=== PATIENT | female | born 1935 | race Caucasian/White ===

== ENCOUNTER 2021-05-07 12:01 | Inpatient (IN) | payer MEDICARE, SELFPAY ==
[~2021-05-07] VITALS: Ht 154.9 cm; Wt 55.3 kg
[2021-05-07 12:13] VITALS: BP_SYST 192
[2021-05-07 16:58] LABS: BASOPHILS % (AUTO) 0.1 % (0.0-2.0); HEMATOCRIT 32.4 % (36-48); HEMOGLOBIN 10.7 g/dL (12.0-16.0); LYMPHOCYTES # (AUTO) 0.6 K/uL (1.0-5.5); LYMPHOCYTES % (AUTO) 3.6 % (20.5-51.5); MEAN CORPUSCULAR HEMOGLOBIN 29 pg (27-31); MEAN CORPUSCULAR HGB CONC 33 % (32-36); MEAN CORPUSCULAR VOLUME 87 fL (79.0-98.0); MONOCYTES # (AUTO) 0.6 K/uL (0.0-1.0); MONOCYTES % (AUTO) 3.6 % (1.7-9.3); NEUTROPHILS # (AUTO) 15.5 K/uL (1.8-7.7); NEUTROPHILS % (AUTO) 92.7 % (40.0-70.0); PLATELET COUNT (AUTO) 257 K/uL (130-430); RED BLOOD CELL COUNT(AUTO) 3.75 MIL/uL (4.2-6.2); RED CELL DISTRIBUTION WIDTH 13.8 % (9.0-15.0); WHITE BLOOD COUNT (AUTO) 16.7 K/uL (4.8-10.8)
[2021-05-07 17:07] LABS: C-REACTIVE PROTEIN QUANT 4.1 mg/dL (0-0.5)
[2021-05-07 17:08] LABS: ANION GAP 13 (5-15); CALCIUM 8.9 mg/dL (8.4-11.0); CHLORIDE 105 mmol/L (98-107); CREATININE 0.91 mg/dL (0.55-1.30); GLUCOSE 135 mg/dL (70-99); POTASSIUM 3.5 mmol/L (3.5-5.1); SODIUM SERUM 142 mmol/L (136-145); UREA NITROGEN, BLOOD 22 mg/dL (8-21)
[2021-05-07 17:15] LABS: ALANINE AMINOTRANSFERASE 15 U/L (12-78); ALBUMIN 3.4 g/dL (3.4-4.8); AMYLASE 93 U/L (0-100); ASPARTATE AMINOTRANSFERASE 13 U/L (10-37); LIPASE 50 U/L (73-393); TOTAL BILIRUBIN 1.5 mg/dL (0.0-1.0)
[2021-05-07] MEDS ORDERED: metroNIDAZOLE 500 MG TABLET PO ONE (18:00)
--- NOTE | 2021-05-07 20:26 | NUR ---
Patient to ER hallway bed for evaluation. Side rails up.
--- NOTE | 2021-05-07 21:02 | NUR ---
Patient brought in via ambulance from home complaining of diffuse abdominal pain with watery diarrhea x 3 days. Family denies patient taking any antibiotics x 2 week. Patient is afebrile. Pain 8/10, sharp throbbing
--- NOTE | 2021-05-07 22:21 | NUR ---
PATIENT HAD BOWEL MOVEMENT. PATIENT GIVEN PERINEAL CARE AND CHANGED. PATIENT REPORTS FEELING BETTER. BUT STILL HAVING ABDOMINAL PAIN. NO OTHER COMPLAINTS/INJURIES PER PATIENT OR NOTED. WILL CONTINUE TO MONITOR.
[2021-05-07] MEDS ORDERED: ACETAMINOPHEN 500 MG TABLET PO PRN (22:45)
[2021-05-07] MEDS ORDERED: DOCUSATE SODIUM 100 MG/10 ML UDC PO PRN (22:45)
[2021-05-07] MEDS ORDERED: ZOLPIDEM TARTRATE 5 MG TABLET PO PRN (22:45)
[2021-05-07] MEDS ORDERED: HYDROcodone/ACETAMIN 7.5-325 MG TAB PO PRN (22:45)
[2021-05-07] MEDS ORDERED: guaiFENesin/DEXTROMETHORPHAN 10 ML UDC PO PRN (22:45)
[2021-05-07] MEDS ORDERED: hydrALAZINE HCL 20 MG/ML VIAL IVP PRN (23:00)
--- NOTE | 2021-05-07 23:03 | NUR ---
RADIOLOGY AT BEDSIDE
--- NOTE | 2021-05-07 23:30 | NUR ---
#20 gauge angiocath placed to LAC. Use of asceptic technique. Opsite placed over site. Blood return noted. Blood for lab drawn from site. Flushed with 10 cc of normal saline. No evidence of infiltration noted. Patient tolerated well.
[2021-05-07] MEDS: D5NS 1,000 ML IV SCH (23:49)
--- NOTE | 2021-05-07 23:50 | NUR ---
Medicated per MD orders. Levaquin infusing with no s/s of infiltration at this time. Will cont to monitor
[2021-05-07] MEDS: ONDANSETRON HCL 4 MG/2 ML VIAL IVP PRN (23:51)
[2021-05-07] MEDS: MORPHINE 2 MG/ML INJ. SYRINGE IVP PRN (23:51)
[2021-05-07 23:55] LABS: FREE T4 (FREE THYROXINE) 1.4 ng/dl (0.8-1.5); PHOSPHORUS 4.7 mg/dL (2.7-4.5); THYROID STIMULATING HORMONE 0.97 uIu/mL (0.36-3.74)
[2021-05-08] MEDS ORDERED: PIPERACILLIN/TAZOBACTAM 2.25 GM VIAL IV ONE (00:17)
--- NOTE | 2021-05-08 00:57 | NUR ---
[facility]. Chest rise and fall noted.
[2021-05-08] MEDS: PIPERACILLIN/TAZO 2.25G/DEX-IS 50 ML IV SCH ×3 (02:24→12:04)
--- NOTE | 2021-05-08 02:36 | NUR ---
Patient resting comfortably. No acute distress noted. chest rise and fall noted. VSS
[2021-05-08] MEDS ORDERED: TRIA15CR2 (03:06)
[2021-05-08] MEDS ORDERED: HYDR-4039 PO (03:06)
[2021-05-08] MEDS ORDERED: FENO160T37 PO (03:06)
[2021-05-08] MEDS ORDERED: PATANOL EACH EYE (03:06)
[2021-05-08] MEDS ORDERED: CLOB15CR4 (03:06)
[2021-05-08] MEDS ORDERED: LOSA50TA3 PO (03:06)
[2021-05-08] MEDS ORDERED: METO25TA6 PO (03:06)
--- NOTE | 2021-05-08 03:43 | NUR ---
REPORT GIVEN TO WILMA FOR CONTINUATION OF CARE. PATIENT RESTING COMFORTABLY. NO ACUTE DISTRESS NOTED.
--- NOTE | 2021-05-08 04:10 | NUR ---
Winston lozano in [facility] - 05/08/21 at 0414 by RHEA Asysned====
--- NOTE | 2021-05-08 04:10 | NUR ---
Assumed total care of patient. Patient appears to be sleeping comfortably in [facility], easily arousable to verbal stimuli. Patient is hypertensive, given PRN blood pressure medication of Hydralazine 10mg IVP. Patient on playground monitor. Patient receiving IV fluids of D5NS at 100ml/hr. Both IV sites flushed with 10cc normal saline, no signs of infiltration noted. Will continue to monitor patient.
--- NOTE | 2021-05-08 04:15 | NUR ---
Lab at bedside drawing morning blood labs
[2021-05-08] MEDS: D5NS 1,000 ML IV SCH ×2 (04:30→12:05)
--- NOTE | 2021-05-08 04:35 | NUR ---
IV fluids of D5NS 1L at 100ml/hr due at 0430. Patient currently has D5NS infusing at 100ml/hr with approx 700ml till liter bag complete. Last dose scanned and given at 0869 on 05/07/21.
[2021-05-08 04:40] LABS: BASOPHILS % (AUTO) 0.2 % (0.0-2.0); HEMATOCRIT 28.6 % (36-48); HEMOGLOBIN 9.5 g/dL (12.0-16.0); LYMPHOCYTES # (AUTO) 0.4 K/uL (1.0-5.5); LYMPHOCYTES % (AUTO) 3.1 % (20.5-51.5); MEAN CORPUSCULAR HEMOGLOBIN 28 pg (27-31); MEAN CORPUSCULAR HGB CONC 33 % (32-36); MEAN CORPUSCULAR VOLUME 86 fL (79.0-98.0); MONOCYTES # (AUTO) 0.7 K/uL (0.0-1.0); MONOCYTES % (AUTO) 5.8 % (1.7-9.3); NEUTROPHILS # (AUTO) 11.4 K/uL (1.8-7.7); NEUTROPHILS % (AUTO) 90.9 % (40.0-70.0); PLATELET COUNT (AUTO) 220 K/uL (130-430); RED BLOOD CELL COUNT(AUTO) 3.34 MIL/uL (4.2-6.2); RED CELL DISTRIBUTION WIDTH 13.7 % (9.0-15.0); WHITE BLOOD COUNT (AUTO) 12.6 K/uL (4.8-10.8)
[2021-05-08 04:48] LABS: ANION GAP 9 (5-15); CALCIUM 8.3 mg/dL (8.4-11.0); CHLORIDE 105 mmol/L (98-107); CREATININE 0.71 mg/dL (0.55-1.30); GLUCOSE 147 mg/dL (70-99); POTASSIUM 3.4 mmol/L (3.5-5.1); SODIUM SERUM 140 mmol/L (136-145); UREA NITROGEN, BLOOD 22 mg/dL (8-21)
[2021-05-08 04:59] LABS: INR 1.1 (0.8-1.2); PROTHROMBIN TIME 10.7 SECS (9.5-12.5)
--- NOTE | 2021-05-08 05:15 | NUR ---
Patient resting quietly. No acute distress noted. Vital signs within normal range. IV fluids infusing as ordered. Will continue to monitor.
--- NOTE | 2021-05-08 05:45 | NUR ---
Blood pressure WNL. Will continue to monitor.
--- NOTE | 2021-05-08 06:16 | NUR ---
Antiobiotics administered to patient. Infusing at 100ml/hr. Will continue to monitor.
--- NOTE | 2021-05-08 06:49 | NUR ---
IV antibiotics infusion completed. No signs or symptoms of adverse reaction. Will continue to monitor.
--- NOTE | 2021-05-08 07:08 | NUR ---
Report given to SAMUEL Holden for continuation of care. Patient resting quietly in gurney, breathing even and unlabored, no signs of acute distress noted. Patient IV fluids infusing as ordered per MD. No signs of infiltration noted.
--- NOTE | 2021-05-08 07:10 | NUR ---
Report received from Zulay BAKER to assume care of patient
--- NOTE | 2021-05-08 08:00 | NUR ---
Patient cleaned thoroughly and linen completely changed
--- NOTE | 2021-05-08 08:26 | NUR ---
Patient awake, alert and oriented x 3. Patient ambulated to restroom with steady gait with RN assistance. BP elevated but otherwise VSS on information consultant. Pt informed she is awaiting hospital room. Will continue to monitor closely.
--- NOTE | 2021-05-08 08:40 | NUR ---
Call placed to Dr Corona for order clarification re PO Protonix; awaiting call back.
[2021-05-08] MEDS: PANTOPRAZOLE SODIUM 40 MG TAB PO SCH (08:52)
[2021-05-08] MEDS ORDERED: PANTOPRAZOLE SODIUM 40 MG TAB ONE (08:52)
--- NOTE | 2021-05-08 08:56 | NUR ---
Dr Irizarry (GI) to bedside for consult on patient
[2021-05-08] MEDS ORDERED: POTASSIUM CHLORIDE 20 MEQ TAB.PRT.SR PO PRN (09:00)
[2021-05-08] MEDS: FENOFIBRATE 160 MG TABLET PO SCH (09:00)
[2021-05-08] MEDS ORDERED: METOPROLOL TARTRATE 25 MG TABLET PO ONE (10:00)
[2021-05-08] MEDS ORDERED: LOSARTAN POTASSIUM 50 MG TABLET (COZAAR) PO ONE (10:00)
[2021-05-08] MEDS ORDERED: FENOFIBRATE 160 MG TABLET PO ONE (10:00)
--- NOTE | 2021-05-08 11:50 | NUR ---
Pt resting in bed. In NAD. BP elevated; meds given as ordered. Will continue to monitor closely.
[2021-05-08] MEDS: hydrALAZINE HCL 25 MG TABLET PO SCH ×2 (12:00→18:00)
--- NOTE | 2021-05-08 12:27 | NUR ---
Apresoline held. Patient's BP decreasing due to large amount PO meds given for HTN.
--- NOTE | 2021-05-08 13:06 | NUR ---
Patient resting in bed; attempting to sleep. Patient remains on bedpan per her request. VSS on traffic monitor specialist. BP remains slightly elevated; will monitor closely for meds needed PRN. Will continue to monitor closely.
--- NOTE | 2021-05-08 13:45 | NUR ---
Stool sample collected and sent to lab for C-diff. Form filled out and left with environmental engineering technician.
--- NOTE | 2021-05-08 13:45 | NUR ---
Patient cleaned thoroughly and linen changed
--- NOTE | 2021-05-08 14:20 | NUR ---
Spoke with Dr Corona re elevated BP (SBP >160) and no IV Hydralazine in the hospital per pharmacy.
--- NOTE | 2021-05-08 14:30 | NUR ---
Spoke with Dr Roland re elevated BP re what medication to give PRN. Order received and to be placed and given.
[2021-05-08] MEDS ORDERED: hydrALAZINE HCL 25 MG TABLET PO ONE (15:00)
--- NOTE | 2021-05-08 16:07 | NUR ---
Spoke with Dr Tse to update re patient condition. Orders changed and placed per him; to be carried out per RN.
--- NOTE | 2021-05-08 17:17 | NUR ---
Patient resting in bed; in NAD. BP improving after meds given as ordered. Dtr called asking if pt could be transferred to [facility]; will follow up. Continue to monitor closely.
[2021-05-08] MEDS: METOPROLOL TARTRATE 25 MG TABLET PO SCH (18:00)
--- NOTE | 2021-05-08 18:00 | NUR ---
Patient cleaned thoroughly and linen completely changed
--- NOTE | 2021-05-08 18:21 | NUR ---
Patient insisting to be transferred to [place]. Stated "Please just let me sign the paper so I can go. I don't want any more blood pressure pills." RN attempted to educate patient re transfer process; pt not receptive to education. Will continue to monitor closely.
--- NOTE | 2021-05-08 18:49 | NUR ---
Report given to Pascual BAKER on [facility] per house sup request. Informed Pascual pt would be taken to floor after shift change
--- NOTE | 2021-05-08 19:41 | NUR ---
Patient will be admitted to care of Dr Corona (as of 05/07/21). Admitted to teleetry unit. Will go to room 120B. Belongings list completed. Complete and up to date summary report printed. SBAR report to be given at bedside with opportunity for questions.
--- NOTE | 2021-05-08 19:42 | NUR ---
Report given to Khadra BAKER (ER material handler 1st shift) to complete transfer of patient to tele bed. Report given to Pascual BAKER on [facility] floor.
[2021-05-08 19:55] VITALS: BP_SYST 157
[2021-05-08] MEDS: VANCOMYCIN HCL ORAL SOLUTION 125 MG/5 ML, 150 ML PO SCH (21:00)
[2021-05-08] MEDS: metroNIDAZOLE 250 mg/NS 50 ML IV SCH (22:00)
[2021-05-08] MEDS ORDERED: NACL 0.9% 1,000 ML IV ONE (22:00)
[2021-05-08] MEDS: LOSARTAN POTASSIUM 50 MG TABLET (COZAAR) PO SCH (23:23)
[2021-05-09] VITALS: BP_SYST 158
[2021-05-09] MEDS: metroNIDAZOLE 250 mg/NS 50 ML IV SCH ×3 (06:00→23:24)
[2021-05-09 08:00] VITALS: BP_SYST 155
[2021-05-09] MEDS: METOPROLOL TARTRATE 25 MG TABLET PO SCH ×2 (08:00→16:51)
[2021-05-09] MEDS: hydrALAZINE HCL 25 MG TABLET PO SCH ×3 (08:00→16:51)
[2021-05-09] MEDS: LOSARTAN POTASSIUM 50 MG TABLET (COZAAR) PO SCH ×2 (09:00→20:32)
[2021-05-09] MEDS: VANCOMYCIN HCL ORAL SOLUTION 125 MG/5 ML, 150 ML PO SCH ×4 (09:00→20:34)
[2021-05-09] MEDS: PANTOPRAZOLE SODIUM 40 MG TAB PO SCH (09:00)
[2021-05-09] MEDS: FENOFIBRATE 160 MG TABLET PO SCH (09:00)
[2021-05-09 09:05] LABS: BASOPHILS % (AUTO) 0.2 % (0.0-2.0); HEMATOCRIT 27.6 % (36-48); HEMOGLOBIN 9.2 g/dL (12.0-16.0); LYMPHOCYTES # (AUTO) 0.5 K/uL (1.0-5.5); LYMPHOCYTES % (AUTO) 3.8 % (20.5-51.5); MEAN CORPUSCULAR HEMOGLOBIN 29 pg (27-31); MEAN CORPUSCULAR HGB CONC 33 % (32-36); MEAN CORPUSCULAR VOLUME 86 fL (79.0-98.0); MONOCYTES # (AUTO) 0.5 K/uL (0.0-1.0); MONOCYTES % (AUTO) 4.2 % (1.7-9.3); NEUTROPHILS # (AUTO) 10.8 K/uL (1.8-7.7); NEUTROPHILS % (AUTO) 91.8 % (40.0-70.0); PLATELET COUNT (AUTO) 196 K/uL (130-430); RED BLOOD CELL COUNT(AUTO) 3.22 MIL/uL (4.2-6.2); RED CELL DISTRIBUTION WIDTH 13.6 % (9.0-15.0); WHITE BLOOD COUNT (AUTO) 11.8 K/uL (4.8-10.8)
--- NOTE | 2021-05-09 11:04 | NUR ---
INFORMED REG NURSE NOHEMI THAT THE PATIENT'S HEART RATE IS 136
[2021-05-09 11:32] LABS: ALANINE AMINOTRANSFERASE 12 U/L (12-78); ALBUMIN 2.2 g/dL (3.4-4.8); ANION GAP 9 (5-15); ASPARTATE AMINOTRANSFERASE 10 U/L (10-37); BILIRUBIN,DIRECT 0.2 mg/dL (0.0-0.3); CALCIUM 8.3 mg/dL (8.4-11.0); CHLORIDE 106 mmol/L (98-107); CREATININE 0.74 mg/dL (0.55-1.30); GLUCOSE 100 mg/dL (70-99); LIPASE 67 U/L (73-393); SODIUM SERUM 139 mmol/L (136-145); TOTAL BILIRUBIN 1.1 mg/dL (0.0-1.0); UREA NITROGEN, BLOOD 17 mg/dL (8-21)
[2021-05-09 12:00] VITALS: BP_SYST 145
[2021-05-09 12:53] LABS: TOTAL IRON BIND. CAPACITY 166 ug/dL (250-450)
[2021-05-09] MEDS: MORPHINE 2 MG/ML INJ. SYRINGE IVP PRN (15:44)
[2021-05-09] MEDS: ONDANSETRON HCL 4 MG/2 ML VIAL IVP PRN (15:49)
[2021-05-09 16:00] VITALS: BP_SYST 135
[2021-05-09] MEDS: KCL 40 mEq in D5W 1000 mL 1,000 ML IV SCH (16:41)
[2021-05-09 19:45] VITALS: BP_SYST 143
[2021-05-10 00:47] VITALS: BP_SYST 137
--- NOTE | 2021-05-10 05:06 | NUR ---
Nutrition Update Dustin Scale 17 noted. Pt admitted for C.diff colitis Diet: Clear liquid BMI: 23.1 kg/m2 RD to follow per nutrition care standards.
[2021-05-10] MEDS: metroNIDAZOLE 250 mg/NS 50 ML IV SCH ×3 (06:00→22:51)
[2021-05-10] MEDS: KCL 40 mEq in D5W 1000 mL 1,000 ML IV SCH ×3 (06:43→22:52)
[2021-05-10 07:37] LABS: BASOPHILS % (AUTO) 0.5 % (0.0-2.0); EOSINOPHILS % (AUTO) 0.4 % (0.0-4.0); HEMATOCRIT 28.5 % (36-48); HEMOGLOBIN 9.5 g/dL (12.0-16.0); LYMPHOCYTES # (AUTO) 0.8 K/uL (1.0-5.5); LYMPHOCYTES % (AUTO) 7.6 % (20.5-51.5); MEAN CORPUSCULAR HEMOGLOBIN 28 pg (27-31); MEAN CORPUSCULAR HGB CONC 33 % (32-36); MEAN CORPUSCULAR VOLUME 86 fL (79.0-98.0); MONOCYTES # (AUTO) 0.5 K/uL (0.0-1.0); MONOCYTES % (AUTO) 5.5 % (1.7-9.3); NEUTROPHILS # (AUTO) 8.6 K/uL (1.8-7.7); PLATELET COUNT (AUTO) 210 K/uL (130-430); RED BLOOD CELL COUNT(AUTO) 3.34 MIL/uL (4.2-6.2); RED CELL DISTRIBUTION WIDTH 13.8 % (9.0-15.0); WHITE BLOOD COUNT (AUTO) 9.9 K/uL (4.8-10.8)
--- NOTE | 2021-05-10 08:00 | NUR ---
OPENING NOTES: PATIENT RESTING IN BED. NO S/S OF ACUTE DISTRESS NOTED. FALL, SAFETY AND ASPIRATION MEASURES REINFORCED. CALL LIGHT WITHIN REACH.
[2021-05-10 08:07] LABS: ANION GAP 7 (5-15); CALCIUM 8.1 mg/dL (8.4-11.0); CHLORIDE 104 mmol/L (98-107); CREATININE 0.59 mg/dL (0.55-1.30); GLUCOSE 139 mg/dL (70-99); POTASSIUM 3.7 mmol/L (3.5-5.1); SODIUM SERUM 137 mmol/L (136-145); UREA NITROGEN, BLOOD 13 mg/dL (8-21)
[2021-05-10] MEDS: FENOFIBRATE 160 MG TABLET PO SCH (09:08)
[2021-05-10] MEDS: PANTOPRAZOLE SODIUM 40 MG TAB PO SCH (09:08)
[2021-05-10] MEDS: METOPROLOL TARTRATE 25 MG TABLET PO SCH ×2 (09:09→17:09)
[2021-05-10] MEDS: LOSARTAN POTASSIUM 50 MG TABLET (COZAAR) PO SCH ×2 (09:10→22:44)
[2021-05-10] MEDS: hydrALAZINE HCL 25 MG TABLET PO SCH ×3 (09:10→17:08)
[2021-05-10] MEDS: VANCOMYCIN HCL ORAL SOLUTION 125 MG/5 ML, 150 ML PO SCH ×4 (09:12→22:50)
--- NOTE | 2021-05-10 10:00 | NUR ---
Dietitian Recommendations *Recommend: advance diet when medically appropriate (Full liquid diet) *Recommend: add Banatrol TID. NILAM, RD
[2021-05-10 10:06] LABS: FOLATE (FOLIC ACID) 7.6 ng/mL (>3.0)
--- NOTE | 2021-05-10 11:09 | NUR ---
ENDORSED CARE: ENDORSED CARE TO SAMUEL SUTHERLAND. PATIENT STABLE CONDITION.
[2021-05-10 11:25] VITALS: BP_SYST 155
--- NOTE | 2021-05-10 14:24 | NUR ---
ST EVALUATION COMPLETED. ST TX NOT INDICATED AT THIS TIME. RECOMMEND PO DIET OF PUREE/THIN LIQUID DIET WITH 1:1 ASSISTANCE AND FULL ASPIRATION PRECAUTIONS.
[2021-05-10 15:59] VITALS: BP_SYST 150
[2021-05-10] MEDS ORDERED: CYANOCOBALAMIN 1000 MCG/ML VIAL IM ONE (17:15)
--- NOTE | 2021-05-10 17:25 | NUR ---
alert, oriented, and appropriate, Portuguese speaking. NO DIARRHEA today at all, despite the fact Stool sent on 05/08, result still pending., on Vanco po. Continues with clear liquid diet, swallowing liquid easily. All po meds must be crushed and given with apple sauce. Out of bed, walked with a walker, with PT, gait steady. per attending, once C diff (-), will discharge her home
[2021-05-10] MEDS: FERROUS SULFATE 325 MG TABLET.DR PO SCH (22:44)
[2021-05-11 00:51] VITALS: BP_SYST 134
[2021-05-11] MEDS: metroNIDAZOLE 250 mg/NS 50 ML IV SCH (06:26)
[2021-05-11 07:17] LABS: BASOPHILS % (AUTO) 0.4 % (0.0-2.0); EOSINOPHILS # (AUTO) 0.1 K/uL (0.0-0.4); EOSINOPHILS % (AUTO) 1.1 % (0.0-4.0); HEMATOCRIT 30.5 % (36-48); HEMOGLOBIN 10.3 g/dL (12.0-16.0); LYMPHOCYTES # (AUTO) 0.7 K/uL (1.0-5.5); LYMPHOCYTES % (AUTO) 8.7 % (20.5-51.5); MEAN CORPUSCULAR HEMOGLOBIN 29 pg (27-31); MEAN CORPUSCULAR HGB CONC 34 % (32-36); MEAN CORPUSCULAR VOLUME 85 fL (79.0-98.0); MONOCYTES # (AUTO) 0.4 K/uL (0.0-1.0); MONOCYTES % (AUTO) 5.3 % (1.7-9.3); NEUTROPHILS # (AUTO) 6.5 K/uL (1.8-7.7); NEUTROPHILS % (AUTO) 84.5 % (40.0-70.0); PLATELET COUNT (AUTO) 237 K/uL (130-430); RED CELL DISTRIBUTION WIDTH 13.4 % (9.0-15.0); WHITE BLOOD COUNT (AUTO) 7.7 K/uL (4.8-10.8)
[2021-05-11 07:56] LABS: ANION GAP 6 (5-15); CALCIUM 8.1 mg/dL (8.4-11.0); CHLORIDE 103 mmol/L (98-107); CREATININE 0.61 mg/dL (0.55-1.30); GLUCOSE 110 mg/dL (70-99); POTASSIUM 3.9 mmol/L (3.5-5.1); SODIUM SERUM 136 mmol/L (136-145); UREA NITROGEN, BLOOD 8 mg/dL (8-21)
[2021-05-11] MEDS: FENOFIBRATE 160 MG TABLET PO SCH (08:13)
[2021-05-11] MEDS: PANTOPRAZOLE SODIUM 40 MG TAB PO SCH (08:13)
[2021-05-11] MEDS: FERROUS SULFATE 325 MG TABLET.DR PO SCH (08:13)
[2021-05-11] MEDS: METOPROLOL TARTRATE 25 MG TABLET PO SCH (08:14)
[2021-05-11] MEDS: hydrALAZINE HCL 25 MG TABLET PO SCH (08:15)
[2021-05-11] MEDS: LOSARTAN POTASSIUM 50 MG TABLET (COZAAR) PO SCH (08:16)
[2021-05-11] MEDS: KCL 40 mEq in D5W 1000 mL 1,000 ML IV SCH (08:18)
[2021-05-11] MEDS ORDERED: METR250T36 PO (08:34)
[2021-05-11] MEDS ORDERED: CYAN100010 PO (10:56)
[2021-05-11] MEDS ORDERED: FERR236T3 PO (10:56)
[2021-05-11 11:09] VITALS: BP_SYST 148
--- NOTE | 2021-05-11 13:28 | NUR ---
alert, oriented, anxious to go home. C diff revealed negative, attending made aware. seen by dr arrieta, discharge to home written. both daughters Carline and Trace notified. patient discharged to home with family today at noon, diarrhea has stopped since yesterday, denied nause , nor vomitting
== END 2021-05-11 12:00 | disposition home or self-care (01) | DRG 871 ==
LOC: SED 12:01 → STU 18:19
PROVIDERS: ADMIT Family Medicine; ATTEND Family Medicine
DX: A41.9 Sepsis, unspecified organism (principal); G93.41 Metabolic encephalopathy; K57.92 Diverticulitis of intestine, part unspecified, without perforation or abscess without bleeding; I16.1 Hypertensive emergency; A04.72 Enterocolitis due to Clostridium difficile, not specified as recurrent; E87.6 Hypokalemia; E83.39 Other disorders of phosphorus metabolism; D63.8 Anemia in other chronic diseases classified elsewhere; E86.0 Dehydration; F03.90 Unspecified dementia, unspecified severity, without behavioral disturbance, psychotic disturbance, mood disturbance, and anxiety; N28.1 Cyst of kidney, acquired; K80.20 Calculus of gallbladder without cholecystitis without obstruction; K70.30 Alcoholic cirrhosis of liver without ascites; I10 Essential (primary) hypertension; R19.7 Diarrhea, unspecified; E53.8 Deficiency of other specified B group vitamins; Z20.822 Contact with and (suspected) exposure to COVID-19
CPT/HCPCS: 36415; 71045; 76376; 80048; 80053; 80061; 80076; 82150; 82607; 82728; 82746; 83036; 83540; 83550; 83605; 83690; 83735; 83880; 84100; 84439; 84443; 85025; 85610-TC; 85730-TC; 86140; 87040; 87230-TC; 92610-GN; 96365; 96366; 96375; 99285; G0378; J0360; J1956; J2270; J2405; J2543; J3490